=== PATIENT | female | born 1935 | race Caucasian/White ===

== ENCOUNTER → 2017-01-11 | Outpatient (CLI) | payer MEDICARE ==
[~2017-01-11] MED LIST: ACET1TAB84 PO; AMLO-114 PO; ASPI-232 PO; CALC500C70 PO; CHOL1000 PO; ENAL10TA88 PO; FURO40TA3 PO; MULT-845 PO; OXGN; SENNTAB23 PO; WARF5TAB7 PO
--- NOTE | 2017-01-14 12:46 | MAMMOGRAPHY REPORT ---
BILATERAL DIGITAL SCREENING MAMMOGRAM WITH CAD: 01/11/2017 CLINICAL HISTORY: Routine screening. Patient has no complaints. TECHNIQUE: Current study was also evaluated with a Computer Aided Detection (CAD) system. Bilatera l CC and MLO views were obtained. COMPARISON: Comparison is made to exams dated: 01/06/2016 mammogram - [facility], mammogram, and 05/28/2012 mammogram. BREAST COMPOSITION: There are scattered areas of fibroglandular density in both breasts. FINDINGS: No suspicious masses, calcifications, or areas of architectural distortion are noted in e ither breast. There has been no significant interval change compared to prior exams. Bilateral nata gn-appearing calcifications are not significantly changed. IMPRESSION: ACR BI-RADS CATEGORY 2: BENIGN There is no mammographic evidence of malignancy. A 1 year screening mammogram is recommended. The p atient will receive written notification of the results. Approximately 10% of breast cancers are not detected with mammography. A negative mammographic repor t should not delay biopsy if a clinically suggestive mass is present. Fatimah De Oliveira M.D. ah/:01/11/2017 15:40:17 Product Controller: Dariana Coello RT(R)(M), [facility] letter sent: Normal 1/2 BI-RADS Code: ACR BI-RADS Category 2: Benign
== END | disposition home or self-care (01) ==
LOC: C.MAMM 12:11
PROVIDERS: ATTEND Internal Medicine
DX: Z12.31 Encounter for screening mammogram for malignant neoplasm of breast (principal)

== ENCOUNTER → 2017-05-17 | Outpatient (CLI) | payer MEDICARE ==
[2017-05-17 13:39] LABS: BASO % 0.3 %; BASO ABS # 0.02 K/uL (0-0.2); COMPLETE YES; EOS % 1.6 %; HEMATOCRIT 52.6 % (37-47); IG% 0.4 %; MEAN CELL VOLUME 97.2 fL (80-100); MEAN CORPUSCULAR HEMOGLOBIN 33.3 pg (25-34); MEAN CORPUSCULAR HGB CONC 34.2 g/dl (32-36); MEAN PLATELET VOLUME 10.4 fL (7.4-10.4); MONO % 7.9 %; NEUT % 45.8 %; PLATELET COUNT 152 K/uL (130-400); RED BLOOD COUNT 5.41 M/uL (4.2-5.4)
[2017-05-17 14:14] LABS: BLOOD UREA NITROGEN 27 mg/dl (7-18); BUN/CREATININE RATIO 28.2 (10-20); CALCIUM 9.9 mg/dl (8.5-10.1); CARBON DIOXIDE 34 mmol/L (21-32); CHLORIDE 103 mmol/L (98-107); CHOLESTEROL 183 mg/dl (0-200); CREATININE 0.96 mg/dl (0.60-1.20); GLUCOSE 94 mg/dl (70-99); POTASSIUM 4.2 mmol/L (3.5-5.1); SODIUM 143 mmol/L (136-145)
[2017-05-17 14:36] LABS: ALKALINE PHOSPHATASE 83 U/L (45-117); ALT/SGPT 32 U/L (12-78); AST/SGOT 27 U/L (15-37); CHOLESTEROL/HDL RATIO 3.1; HDL CHOLESTEROL 60 mg/dl; LDL CHOLESTEROL CALCULATED 84 mg/dl; TRIGLYCERIDES 193 mg/dl (0-150); VERY LOW DENSITY LIPOPROT CALC 39 mg/dl
== END | disposition home or self-care (01) ==
LOC: C.LABBC 12:04
PROVIDERS: ATTEND Internal Medicine
DX: E55.9 Vitamin D deficiency, unspecified (principal); E78.1 Pure hyperglyceridemia

== ENCOUNTER → 2017-10-11 | Outpatient (CLI) | payer MEDICARE ==
[~2017-10-11] VITALS: Ht 167.6 cm; Wt 107.0 kg
[~2017-10-11] MED LIST changes: -AMLO-114 PO; +AMLO10TA3 PO; +CALCCAP14 PO; +DOCU100C31 PO
[2017-10-11 15:52] VITALS: BP 125/68; PULSE 81; Ht 167.6 cm; Wt 107.0 kg
== END | disposition home or self-care (01) ==
LOC: C.NEUR 15:15
PROVIDERS: ATTEND Internal Medicine Pulmonary Disease
DX: G47.34 Idiopathic sleep related nonobstructive alveolar hypoventilation (principal); D75.1 Secondary polycythemia

== ENCOUNTER → 2017-10-28 | Outpatient (CLI) | payer MEDICARE ==
[~2017-10-28] MED LIST changes: +AMLO-114 PO; -AMLO10TA3 PO; -CALCCAP14 PO; -DOCU100C31 PO
--- NOTE | 2017-10-29 07:37 | PAP/PSG TECHNICIAN REPORT ---
[facility] Mold Maker Apprentice Polysomnogram Report Study name: None Report date: 10/29/2017 Study date: 10/28/2017 Referring Physician: DR. Emily MARKHAM Name: MARIA ESTHER MELENDEZ Interpreting Physician: Pedro Luis Oconnell M.D. Date of : 1935 Mold Maker Apprentice: Layla Cruz, PSGT. Sex: Female Age: 82 StudyType: PSG Weight: 236 lbs Height: 82 years, Height 5' 6" Neck Circum:15 inches BMI: 38.09 Medications: Acetaminophen Er 650 mg, Amlodipine 10 mg, Aspirin 81 mg, Calcium+D, Centrum Silver, Enalapril Maleate 10 mg, Furosemide 40 mg, Jantoven 1 mg, Jantoven 5 mg, Oxygen 2 lpm, Stool Softner. Patient History 82-year-old female here for a Bi-pap titration with a full-face mask, and oxygen as needed. Patient has tired C-pap in the past and was not tolerate to it. or the mask, nasal pillows were tired and they also did not work for her, so patient discontinued treatment all together. Patient does have copd, polycythemia requiring phlebotomy, severe ninfa and hypoxemia. Patient uses 2 lpm of oxygen at bedtime.ESS= 7, Neck = 15 inches. Parameters Monitored NPSG: E1-M2, E2-M1, Fp1-M2, Fp2-M1, F3-M2, F4-M2, F4-M1, C3-M2, C4-M2, C4-M1, O1-M2, O2-M2, O2-M1, T3-M2, T4-M1, P3-M2, P4-M1, CHIN1, CHIN2, HR, EKG, Legs, PFLOW, SNOR, FLOW, CFLOW, Tidal Volume, THOR, ABDO, SpO2, PLTH, CPRESS, ETCO2 Wave, ETCO2, pH Sleep Architecture Sleep Stages Time at Lights Off 10:08:30 PM STAGES Time (min.) TST (%) Time at Lights On 4:41:30 AM Wake 85.0 -- Total Recording Time (TRT) 394.50 min. N1 16.5 5 Total Sleep Period (TSP) 369.0 min. N2 255.0 83 Total Sleep Time (TST) 308.0min. N3 0.0 0 Awake Time 86.5 min. REM 36.5 12 Wake after Sleep Onset 69.0 min. Sleep Efficiency (SE) 78 % Sleep Onset Latency (MARLYS) 16.0 min. Number of Stage 1 Shifts None Awakenings 14 Stage Changes 49 Number of REM periods 3 REM 36.5 12 REM Latency 95.0 min. NREM 271.5 88 Body Position Analysis Supine Right Left Side Prone Vertical Total Sleep Time (min.) 103.3 110.7 118.3 229.00 0.0 0.0 Total Sleep Time (%) 26% 36% 38% 74 0% N/A% Total Sleep Time REM (min.) 0.0 36.5 0.0 None 0.0 0.0 Total Sleep Time NREM (min.) 79.0 74.2 118.3 None 0.0 0.0 Intermittent Wake (min.) 24.3 21.6 39.0 None 0.0 0.0 Total Sleep Period (%) 24% None None None None None Arousals Myoclonus (PLM) * Events Count Index Events Count Index Spontaneous 35 7 Events Awake (PLMW) 0 0.0 Respiratory 19 3.7 Events Asleep w/ Arousal (PLMA) 32 6.2 PLM 32 6 Events Asleep w/o Arousal (PLMS) 359 69.9 Snoring 2 0 Total Asleep 391 76.2 Total 88 17 Total 391 60 Respiratory Analysis * CA OA MA CH H RERA Total Count 4 4 0 0 45 0 53 Index 0.8 0.8 0.0 0 8.8 0 10.3 Mean Duration 20.0 23.1 0.0 0.00 17.1 0.0 17.8 Longest Duration 26.0 37.3 0.0 0.00 0.0 0.0 37.3 Respiratory Event Summary Total Supine ~Supine Right Left Prone REM NREM Apneas Count 8 8 0 0 0 N/A 0 8 Index 1.6 6 0 0.0 0.0 N/A 0 2 Hypopneas (4% Desat) Count 45 39 6 3 3 N/A 0 45 Index 8.8 29.6 2 1.6 1.5 N/A 0.0 9.9 Apneas & All Hypopneas Count 53 47 6 3 3 N/A 0 53 Index 10.3 36 2 2 2 N/A 0.0 11.7 Respiratory Events (Manager Paid+All Hyp+RERA) Count 53 47 6 3 3 N/A 0 53 Index 10.3 36 2 1.6 1.5 N/A 0.0 11.7 Respiratory Related Arousal Count 19 47 0 0 0 N/A 0 19 Index 3.7 14 0 0 0 N/A 0 4 Snoring Analysis Supine Right Left Prone REM NREM Total Snore duration 2.7 min Snores count 48 48 26 N/A 1 121 122 Snore mean duration 1.3 Sec Snores index 36 26 13 N/A 1.6 26.7 23.8 TST with snoring (%) 0.9% Desaturation Event Summary: Minimum %SpO2 Event Count Mean/Min/Max Duration(sec.) Desaturation Index % Time In Bed > 90 75 27.8 / 12.8 / 51.0 17.9 66.2 86 - 90 23 24.0 / 8.0 / 32.0 12.4 29.2 81 - 85 0 N/A 0.0 3.8 76 - 80 0 N/A 0.0 0.7 71 - 75 0 N/A 0.0 0.0 66 - 70 0 N/A 0.0 0.0 61 - 65 0 N/A 0.0 0.0 56 - 60 0 N/A 0.0 0.0 51 - 55 0 N/A 0.0 0.0 < 50 0 N/A 0.0 0.0 Total REM NREM Awake <50% 0.0 min. 0.0 min. 0.0 min. 0.0 min. 51 - 60% 0.0 min. 0.0 min. 0.0 min. 0.0 min. 61 - 70% 0.0 min. 0.0 min. 0.0 min. 0.0 min. 71 - 80% 2.9 min. 0.0 min. 2.9 min. 0.0 min. 81 - 90% 125.5 min. 16.2 min. 92.9 min. 16.5 min. 91 - 100% 252.1 min. 20.2 min. 175.5 min. 56.3 min. Average 91 91 91 92 Minimum SpO2 74 85 74 82 Desaturation Event Index 12.8 1.6 18.3 0.0 # Desat. Events below 89% 70 1 69 0 Time(%) with Saturation below 89% 16.3 2.0 12.8 1.5 Time(min.) with Saturation below 89% 62.1 7.6 48.9 5.7 Time (mins) REM (mins) NREM (mins) % of TST SpO2 Below 90% 79 1 N78 26.4 SpO2 Below 88% 31 0 0 14 Heart Rate Analysis Min (bpm) Max (bpm) Average (bpm) Awake 30 129 62 NREM 38 85 54 REM 43 66 53 Overall 38 85 54 Supplemental O2 Values Minimum O2 level: None Value Start Time End Time Mold Maker Apprentice Comments Bi-Level Study: Ms. Melendez slept in the right, left, and supine positions. Cardiac arrhythmia and PLM's noted. No bruxism noted. PAP initiated at an IPAP of +4 CMH2O and an EPAP of +8 CMH2O up-titrated to an optimal level of: IPAP +13 CMH2O, EPAP + 8 CMH20 with 1 lpm 02. At 2:52 am Ms. Melendez was under 89% for 167.6 minutes and her AHI was under 5. A medium F&P Simplus, was used during titration Ms. Melendez awoke to use the restroom two times during the night. Ms. Melendez stated, I could not get comfortable. The final report will be interpreted and signed by a sleep physician. The completed physician report will then be placed in the patient medical record. Patient did very well with the bi-pap pressures and the full-face mask.Ms. Melendez did have a lot of leg movement and pain in her legs. Ms. Melendez woke to use the restroom at 4:41 am, she said she could not lay back down, she just was to uncomfortable, test was ended at that time. Patient should do well. Ms. Melendez asked that we use oxygen care for her DME. Therapy Event: Therapy (cm H20) 0 8/4 9/5 10/5 11/6 12/7 13/8 Total Time at Pressure (min.) 0.8 18.4 31.4 7.5 29.9 21.5 283.6 TST at Pressure (min.) 0.0 3.2 30.4 7.5 29.9 13.0 224.1 # Periods 1 1 1 1 1 1 1 Sleep Onset (min.) N/A 15.2 0.0 0.0 0.0 0.0 0.0 REM Onset (min.) N/A N/A N/A N/A N/A N/A 1.6 Sleep Efficiency % 0 17 96 100 100 60 79 Wakefulness (%) 100.0 82.7 3.2 0.0 0.0 39.6 21.0 Wakefulness (min.) 0.8 15.2 1.0 0.0 0.0 8.5 59.5 NREM 1 (%) 0.0 8.2 3.2 0.0 0.0 4.7 4.6 NREM 1 (min.) 0.0 1.5 1.0 0.0 0.0 1.0 13.0 NREM 2 (%) 0.0 9.1 93.6 100.0 100.0 55.8 61.6 NREM 2 (min.) 0.0 1.7 29.4 7.5 29.9 12.0 174.6 NREM 3 (%) 0.0 0.0 0.0 0.0 0.0 0.0 0.0 NREM 3 (min.) 0.0 0.0 0.0 0.0 0.0 0.0 0.0 REM (%) 0.0 0.0 0.0 0.0 0.0 0.0 12.9 REM (min.) 0.0 0.0 0.0 0.0 0.0 0.0 36.5 # Arousals N/A 2 9 5 26 9 37 Arousal Index N/A 37.9 17.8 40.1 52.2 41.6 9.9 # Snore N/A 2 6 2 32 8 72 Snore Index N/A 37.9 11.9 16.1 64.3 37.0 19.3 AHI N/A 56.8 19.8 40.1 44.2 32.4 1.6 AHI Supine N/A 56.8 19.8 40.1 44.2 51.7 N/A AHI Non-Supine N/A N/A N/A N/A N/A 0.0 1.6 NREM AHI N/A 56.8 19.8 40.1 44.2 32.4 1.9 REM AHI N/A N/A N/A N/A N/A N/A 0.0 RDI N/A 56.8 19.8 40.1 44.2 32.4 1.6 # Obstructive N/A 0 0 1 2 1 0 # Central Ap N/A 0 0 0 1 3 0 # Mixed N/A 0 0 0 0 0 0 # Hypopneas N/A 3 10 4 19 3 6 RERAS N/A 0 0 0 0 0 0 Total Respiratory Events N/A 3 10 5 22 7 6 Time Below SpO2 89.00% (min.) 0.0 1.7 20.3 5.3 14.0 5.2 9.9 Mean NREM SpO2 (%) N/A 88 88 87 89 89 92 Mean REM SpO2 (%) N/A N/A N/A N/A N/A N/A 91 Mean Sleep SpO2 (%) N/A 88 88 87 89 89 92 Min NREM SpO2 (%) N/A 81 76 77 74 78 83 Min REM SpO2 (%) N/A N/A N/A N/A N/A N/A 85 Position Supine (min.) 0.0 3.2 30.4 7.5 29.9 8.1 0.0 Position Non-supine (min.) 0.0 0.0 0.0 0.0 0.0 4.9 224.1 LM Index Sleep N/A 37.9 39.5 32.1 72.3 87.8 83.0 LM Index NREM N/A 37.9 39.5 32.1 72.3 87.8 95.3 LM Index REM N/A N/A N/A N/A N/A N/A 19.7 Mean Heart Rate (bpm) N/A 54 54 55 55 55 54 Min Heart Rate (bpm) N/A 47 43 46 42 45 38
--- NOTE | 2017-10-31 04:43 | POLYSOMNOGRAPH REPORT ---
CLINICAL DATA: An 82-year-old female with BMI of 38.1, referred by myself for a BiPAP titration study. She has tried CPAP in the past but did not tolerate it. She has COPD, polycythemia, and hypoxemia, along with severe sleep apnea. She does use 2 liters of oxygen at bedtime. SLEEP ARCHITECTURE: Total sleep period was 369 minutes. Total sleep time was 308 minutes divided between 271.5 minutes of non-REM sleep and 36.5 minutes of REM sleep. Sleep onset latency was 16 minutes. REM latency was 95 minutes. Sleep efficiency was 78%. Wake after sleep onset was 69 minutes. Sleep consisted of stage N1 5%, stage N2 83%, and REM 12%. AROUSAL DATA: Eighty eight arousals were recorded for an index of 17 per hour. PERIODIC LIMB MOVEMENT DATA: Three hundred and ninety one limb movements during sleep were noted for an index of 76.2 per hour with arousal index of 6.2 per hour. RESPIRATORY DATA: The AHI was 10.3. There were 4 central and 4 obstructive apneic episodes. The longest apneic episode was 37.3 seconds. There were 45 hypopneic episodes with a mean duration 17.1 seconds. OXIMETRY DATA: Nocturnal hypoxemia was seen. Oxygen anabella was 74%. Mean saturation was 91%, time below 89% was 62 minutes. Time below 88% was 31 minutes. ECHOCARDIOGRAM: Heart rates ranged from 38-85 beats per minute. DOOR TO DOOR SALESPERSON'S COMMENTS AND TREATMENT SUMMARY: The patient slept in the right, left, and supine position. The patient used a medium F&P Simplus mask. She was started on BiPAP 8/4 and was titrated up to 13/8, initially without oxygen. However, her saturations were under 89% for 167 minutes with an AHI of 5. Oxygen at 1 liter per minute was added. She tolerated BiPAP well. However, she had a leg movements and pain in her legs and awoke at 4:41 a.m. saying she could not go back to sleep, so the study was ended at that point. At her final BIPAP pressure of 13/8 and O2 1 LPM, the patient slept for 224 minutes with an AHI of 1.6. IMPRESSION: Severe sleep apnea/hypopnea with nocturnal hypoxemia corrected with BiPAP 13/8, oxygen at 1 liter per minute using a medium F&P Simplus mask. RECOMMENDATIONS: The patient will be started on the above noted treatment regimen and seen back in followup within 90 days to document efficacy and compliance. MTDD
== END | disposition home or self-care (01) ==
LOC: C.NEUR 20:00
PROVIDERS: ATTEND Internal Medicine Pulmonary Disease
DX: D75.1 Secondary polycythemia (principal); G47.34 Idiopathic sleep related nonobstructive alveolar hypoventilation; G47.30 Sleep apnea, unspecified

== ENCOUNTER → 2018-02-17 | Outpatient (CLI) | payer MEDICARE ==
[~2018-02-17] MED LIST changes: -CALC500C70 PO; +CALCCAP14 PO; +DOCU100C31 PO; -SENNTAB23 PO
--- NOTE | 2018-02-18 15:04 | MAMMOGRAPHY REPORT ---
BILATERAL DIGITAL SCREENING MAMMOGRAM TOMOSYNTHESIS WITH CAD: 02/17/2018 CLINICAL HISTORY: Routine screening. Patient has no complaints. TECHNIQUE: Breast tomosynthesis in addition to standard 2D mammography was performed. Additional 2D views were performed in the anterior breasts, to ensure inclusion of all possible breast tissue. Cu rrent study was also evaluated with a Computer Aided Detection (CAD) system. COMPARISON: Comparison is made to exams dated: 01/11/2017 mammogram, 01/06/2016 mammogram - [facility], 05/29/2013 mammogram, and 05/28/2012 mammogram. BREAST COMPOSITION: There are scattered areas of fibroglandular density in both breasts. FINDINGS: There are diffuse benign-appearing rodlike and rim calcifications in the breasts. A stable grouping of punctate micro calcifications in the anterior left breast appears similar dating back to at least 2007. A stable metallic biopsy marker clip in the right breast. No new suspicious mass, a rchitectural distortion or cluster of microcalcifications is seen. IMPRESSION: ACR BI-RADS CATEGORY 1: NEGATIVE There is no mammographic evidence of malignancy. A 1 year screening mammogram is recommended. The pa tient will receive written notification of the results. Approximately 10% of breast cancers are not detected with mammography. A negative mammographic report should not delay biopsy if a clinically suggestive mass is present. Lindsey Rodriguez M.D. ay/:02/17/2018 16:07:01 Estimate Clerk: Gina BALTAZAR(Jude)(Enedina)(BD), [facility] letter sent: Normal 1/2 BI-RADS Code: ACR BI-RADS Category 1: Negative
== END | disposition home or self-care (01) ==
LOC: C.MAMM 13:25
PROVIDERS: ATTEND Internal Medicine
DX: Z12.31 Encounter for screening mammogram for malignant neoplasm of breast (principal)

== ENCOUNTER → 2018-05-08 | Outpatient (CLI) | payer BC ==
[~2018-05-08] MED LIST changes: -AMLO-114 PO; +AMLO10TA3 PO
[2018-05-08 13:28] LABS: BASO % 0.3 %; BASO ABS # 0.02 K/uL (0-0.2); EOS ABS # 0.08 K/uL (0-0.5); HEMATOCRIT 50.2 % (37-47); HEMOGLOBIN 17.1 g/dL (12.0-16.0); IG# 0.02 K/uL (0.00-0.02); LYMPH ABS # 2.74 K/uL (1.2-3.4); MEAN CELL VOLUME 95.6 fL (80-100); MEAN CORPUSCULAR HEMOGLOBIN 32.6 pg (25-34); MEAN CORPUSCULAR HGB CONC 34.1 g/dl (32-36); MEAN PLATELET VOLUME 10.2 fL (7.4-10.4); MONO % 8.8 %; MONO ABS # 0.69 K/uL (0.11-0.59); NEUT % 54.6 %; NEUT ABS # 4.27 K/uL (1.4-6.5); PLATELET COUNT 150 K/uL (130-400); RED CELL DISTRIBUTION WIDTH CV 14.1 % (11.5-14.5); RED CELL DISTRIBUTION WIDTH SD 49.3 fL (36.4-46.3); WHITE BLOOD COUNT 7.82 K/uL (4.8-10.8)
[2018-05-08 13:51] LABS: ALKALINE PHOSPHATASE 79 U/L (45-117); ALT/SGPT 25 U/L (12-78); AST/SGOT 32 U/L (15-37); BLOOD UREA NITROGEN 26 mg/dl (7-18); CALCIUM 9.4 mg/dl (8.5-10.1); CARBON DIOXIDE 29 mmol/L (21-32); CHOLESTEROL 160 mg/dl (0-200); CREATININE 0.99 mg/dl (0.60-1.20); GLUCOSE 95 mg/dl (70-99); LDL CHOLESTEROL CALCULATED 72 mg/dl; POTASSIUM 3.9 mmol/L (3.5-5.1); SODIUM 139 mmol/L (136-145); TOTAL PROTEIN 7.6 gm/dl (6.4-8.2)
== END | disposition home or self-care (01) ==
LOC: C.LABBC 12:06
PROVIDERS: ATTEND Internal Medicine
DX: I48.91 Unspecified atrial fibrillation (principal); I10 Essential (primary) hypertension; D75.1 Secondary polycythemia; M81.0 Age-related osteoporosis without current pathological fracture; G47.34 Idiopathic sleep related nonobstructive alveolar hypoventilation; M17.0 Bilateral primary osteoarthritis of knee

== ENCOUNTER 2023-01-08 18:14 | Inpatient (IN) ==
--- NOTE | 2023-01-08 18:23 | ED Triage Note ---
Date of Service January 08, 2023 History of Present Illness This patient was briefly evaluated while in triage. An abbreviated physical exam was performed. This patient is a 87-year-old Female who presents to the ED via EMS for evaluation of a blister to her left great toe. The patient has had this before in the past that required further management with the [facility]. Patient denies any pain. Patient does have a history of atrial fibrillation. She denies history of CHF. She currently denies any chest pain or shortness of breath. Physical Exam CONSTITUTIONAL: Healthy and well nourished. HEENT: Normocephalic, atraumatic. NECK: Full active range of motion without discomfort. LYMPHATICS: No cervical chain adenopathy. RESPIRATORY: Clear to auscultation bilaterally with no wheezing, crackles, rhonchi or stridor. CARDIOVASCULAR: Regular rate and rhythm with no murmurs, rubs or gallops. MUSCULOSKELETAL: Examination shows a tense blister to the dorsal lateral aspect of the great toe. Patient has notable 2+ pretibial pitting edema with erythema of bilateral lower extremities. Pedal pulses are intact INTEGUMENTARY: No rash or other significant dermatologic conditions noted. HEMATOLOGIC: No ecchymosis or petechiae. PSYCHIATRIC: Positive affect. Initial orders for labs and / or imaging were placed and patient was placed in the waiting area until a bed is available. Please see further documentation for the full ED course.
[2023-01-08 19:15] LABS: Basophils # (auto) 0.04 K/uL (0-0.2); Basophils % (auto) 0.6 %; Eosinophils # (auto) 0.06 K/uL (0-0.50); Hematocrit (blood only) 45.8 % (37.0-47.0); Hemoglobin 15.2 g/dl (12.0-16.0); Immature Granulocytes # (auto) 0.01 K/uL (0.01-0.20); Immature Granulocytes % (auto) 0.2 %; Lymphocytes # (auto) 2.63 K/uL (1.2-3.4); Lymphocytes % (auto) 41.7 %; Mean Corpuscular Hemoglobin 31.9 pg (25.0-34.0); Mean Corpuscular Hgb Conc 33.2 g/dL (32.0-36.0); Mean Platelet Volume 10.4 fL (9.4-12.4); Monocytes # (auto) 0.58 K/uL (0.11-0.59); Monocytes % (auto) 9.2 %; Neutrophils # (auto) 2.99 K/uL (1.40-6.50); Neutrophils % (auto) 47.3 %; Platelet Count 191 K/uL (130-400); RDW Coefficient of Variation 13.8 % (11.5-14.5); RDW Standard Deviation 49.1 fL (36.4-46.3); Red Blood Count 4.77 M/uL (4.20-5.40); White Blood Count 6.31 K/ul (4.8-10.8)
[2023-01-08 19:33] LABS: Alanine Aminotransferase 23 U/L (7-52); BUN Creatinine Ratio 28.3 (10-20); Blood Urea Nitrogen 26 mg/dl (6-23); Calcium 9.3 mg/dl (8.6-10.3); Carbon Dioxide 32 mmol/L (21-32); Chloride 101 mmol/L (98-107); Est GFR (African American) 65.8 ml/min; Est GFR (Non-African American) 56.8 ml/min; Glucose 95 mg/dl (70-99(Fasting)); Lipase 17 U/L (11-82); Total Protein 7.4 gm/dl (6.0-8.3)
[2023-01-08 19:38] LABS: Troponin I High Sensitivity 11.7 pg/ml (0-14)
[2023-01-08] MEDS ORDERED: cefTRIAXone SODIUM 2,000 MG/70 ML BAG IV STA (20:43)
[2023-01-08] MEDS ORDERED: FUROSEMIDE 40 MG/4 ML VIAL IV ONE (20:44)
[2023-01-08 21:05] LABS: Albumin Level 4.1 gm/dl (3.4-5.0); Potassium 3.8 mmol/L (3.5-5.1)
[2023-01-08 21:19] LABS: INR 2.5 (0.9-1.1); Prothrombin Time 25.6 Seconds (9.0-12.0)
--- NOTE | 2023-01-08 22:36 | XRay Report ---
SINGLE VIEW CHEST CLINICAL HISTORY: Atypical chest pain FINDINGS: An AP, portable, upright chest radiograph is compared to study dated 12/23/2022. The heart i s enlarged noting atherosclerotic calcification of the thoracic aorta. The pulmonary vasculature is n oncongested. Chronic interstitial thickening similar to previous. There is bibasilar scarring/atelect asis. The lungs and pleural spaces are otherwise clear. No pneumothorax is seen. The skeletal structu res are osteopenic. The bony thorax is grossly intact. IMPRESSION: Cardiomegaly with no active disease in the chest. ACT 112: Negative or not required by law. Electronically signed by: Jose Welsh M.D. 01/08/2023 10:35 PM
--- NOTE | 2023-01-08 23:04 | History & Physical Report ---
Date of Service January 08, 2023 Assessment & Plan (1) Edema: Plan: 87-year-old female with history of atrial fibrillation on Coumadin anticoagulation, hypertension, CKD and severe KAYLIN on nocturnal CPAP with oxygen presenting with progressive bilateral lower extremity edema and presumed weight gain. Mild elevation of BNP = 153. Chest x-ray with cardiomegaly but no obvious pulmonary edema Do not suspect active infection - no additional antibiotics at this time Check TSH and urinalysis for proteinuria -Check 2D echo -Diuresis with Lasix 40mg IV BID -Monitor I/Os, daily weights -Monitor BMP, renal function and electrolytes (2) Hypertension: Plan: Chronic hypertension, well controlled at present -Continue Amlodipine 10mg po daily -Continue Enalapril 10mg po BID -Continue to monitor (3) Severe sleep apnea: Plan: Patient with severe KAYLIN and nocturnal hypoxemia. She is on home BiPAP therapy wtih supplemental O2. Her settings per last Sleep note 08/07/22 BiPAP 13/8, BiFlex 3 with 1L/min of O2 -Continue BiPAP qHS with O2 (4) CKD (chronic kidney disease), stage III: Plan: BUN and Cr near baseline -Continue to monitor -Avoid nephrotoxic agents where able -Renal dosing as needed (5) Permanent atrial fibrillation: Plan: Rate controlled with episodic bradycardia. Currently not on any rate controlling agents. Anticoagulated with Coumadin, INR=2.5 -Continue Coumadin -Monitor INR Patient takes Benadryl BID for episodes of urticaria. -Will continue F/E/N - Diuresis as above with IV Lasix, monitor electrolytes and replete as needed, Regular diet as tolerated Ppx - Continue Coumadin anticoagulation Code - DNR/DNI per discussion with patient Dispo - Admit to medical with telemetry for continued workup of edema and IV diuretics History of Present Illness Chief Complaint: Bilateral lower extremity edema, blister on left great toe Primary Care Provider: Ian Galindo MD Juana Quiñones is an 87-year-old female with history of atrial fibrillation, hypertension, CKD and KAYLIN presenting with worsening edema and fluid filled blister on left great toe. Patient reports that she has had progressive bilateral lower extremity edema for the last week. She reports that the skin on her legs feels tight and that her legs feel heavy causing difficulty with ambulation at times. She woke this morning and had a fluid-filled blister on her left great toe. She does not weigh herself regularly but reports she feels that she has gained weight. Her close do not fit properly and she is unable to get her shoes on her feet. She was using compression stockings in the past but has been unable to get them on secondary to the swelling in her legs. She denies shortness of breath or orthopnea. Reports that she is urinating per usual without difficulty. Patient is uncertain of her dry weight but thinks that she should weigh between 220 and 225 pounds. Patient recently completed a course of nitrofurantoin for UTI.She reports persistent urinary incontinence. No additional complaints. Patient denies fever, chills, chest pain, cough, shortness of breath. Denies abdominal pain, nausea, vomiting, diarrhea. Denies dysuria. In the ER she is afebrile, hemodynamically stable. Adequate oxygenation on room air with no respiratory distress ER course: Lasix 40mg IV Ceftriaxone 2gm IV Allergies Allergy/AdvReac Type Severity Reaction Status Date / Time adhesive Allergy Intermediate RASH Verified 01/08/23 21:36 Iodinated Contrast Media Allergy Intermediate IMMEDIATE Verified 01/08/23 21:36 COLD SYMPTOMS codeine AdvReac Intermediate Hyperactive Verified 01/08/23 21:36 and agitated meperidine AdvReac Intermediate VOMITTING Verified 01/08/23 21:36 Home Medications Medication Instructions Recorded Confirmed Type cholecalciferol (vitamin D3) 25 1,000 units PO QAM 07/28/18 01/08/23 History mcg (1,000 unit) capsule docusate sodium 100 mg capsule 100 mg PO QAM 07/28/18 01/08/23 History jgkhghgg-fyb-nbuzo acid 0.4 1 tab PO QAM 07/28/18 01/08/23 History mg-lycopene 300 mcg-lutein 250 mcg tablet (Centrum Silver) acetaminophen 650 mg 650 mg PO Q12H 05/12/19 01/08/23 History tablet,extended release (Tylenol Arthritis Pain) warfarin 5 mg tablet (Jantoven) See Rx Instructions PO UD 09/19/22 01/08/23 History enalapril maleate 10 mg tablet 10 mg PO BID #180 tabs 09/24/22 01/08/23 Rx warfarin 1 mg tablet See Rx Instructions PO UD #150 tabs 11/05/22 01/08/23 Rx amlodipine 10 mg tablet (Norvasc) 10 mg PO QAM #90 tabs 12/03/22 01/08/23 Rx calcium carbonate 600 mg calcium 600 mg PO QAM 12/26/22 01/08/23 History (1,500 mg) tablet furosemide 40 mg tablet (Lasix) 40 mg PO DAILY 01/08/23 01/08/23 History Past Med/Surg History Medical History Atrial fibrillation on warfarin. 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 Cystocele History of colon polyps HTN (hypertension) Hx of endometriosis Hx of migraines Lymphedema Nocturnal hypoxemia On home O2 1 LPM qHS Sleep apnea CPAP Surgical History H/O oral surgery H/O vascular surgery RT LEG (VEIN ABLATION) H/O: hysterectomy History of appendectomy History of cataract surgery RT/LEFT History of colonoscopy History of dilatation and curettage S/P cholecystectomy Family History Mother Cervical cancer Diabetes Hypertension Gallbladder disease Sister Colon cancer Diabetes Kidney disease Gallbladder disease Father Diabetes Lung disease Brother Colon cancer Alcohol abuse Lung disease Uncle Myocardial infarction Other Family history non-contributory Family history of colon cancer No family history of adverse response to anesthesia Social History Smoking Status: Never smoker Second Hand Exposure: No; Hx Alcohol Use: No Hx Substance Use: No Preferred Language: Palauan Communication Ability: Effective Visual Impairment: Limited Hearing Ability: Normal [place]erry Hand Required: No Beliefs That Will Affect Care: None marital status: / Current Living Situation: Family Current Living Situation Comment: lives with daughter and CHANDA current occupational status: retired How many Children do You have: 1 Other Information That Helps Us Care for You: No Feels Safe at Home: Yes Safety Concerns: Feels Safe At This Time Childhood Exposure to Second-Hand Smoke: Yes caffeine: No Dental Care, Regularly: No Physical Activity Frequency: Does not Exercise Seatbelt Use: always Sunscreen Use: No Assistive Devices: CPAP, Glasses and Walker Assistive Devices Comment: reading glasses Review of Systems Review of Systems: All systems reviewed & are unremarkable except as noted in HPI & below Physical Exam Physical Exam: General: patient resting comfortably, NAD, non-toxic in appearance, AA&O x 4 Skin: warm, dry, intact, chronic venous stasis changes with hyperpigmentation on bilateral LE, no active cellulitis suspected, small fluid filled blister on left great toe HEENT: NC/AT, PERRL, EOMI, anicteric sclera, conjunctiva without injection, external ear normal to inspection and nontender, nares patent, moist mucus membranes, dentition intact, no oropharyngeal lesions, neck supple, trachea midline, no LAD, no thyromegaly, no JVD Heart: +S1/S2, irregularly irregular, no m/r/g, bradycardia Lungs: equal air entry bilaterally, no rales/rhonchi/wheezes Abd: +BS, soft, NT/ND, no masses/organomegaly/ascites Ext: warm, 2+ pulses in UE/LE bilaterally, no clubbing/cyanosis, 3+ pitting edema to the thighs bilaterally Neuro: nonfocal, patient AA&O x 4, speech intact, no facial droop, moving all extremities on command with equal strength 5/5 Results & Data Results & Data Vital Signs (Past 12 Hours) Vital Signs Temp Pulse Resp BP BP Pulse Ox O2 Del Method 01/08/23 21:42 95 Room Air 01/08/23 21:42 113/63 95 01/08/23 18:19 36.4 C L 73 20 134/69 97 Room Air Laboratory Results Laboratory Results WBC 6.31 K/ul (4.8-10.8) 01/08/23 18:35 RBC 4.77 M/uL (4.20-5.40) 01/08/23 18:35 Hgb 15.2 g/dl (12.0-16.0) 01/08/23 18:35 Hct 45.8 % (37.0-47.0) 01/08/23 18:35 MCV 96.0 fL (80.0-100.0) 01/08/23 18:35 MCH 31.9 pg (25.0-34.0) 01/08/23 18:35 MCHC 33.2 g/dL (32.0-36.0) 01/08/23 18:35 RDW Std Deviation 49.1 fL (36.4-46.3) H 01/08/23 18:35 RDW Coeff of Lizabeth 13.8 % (11.5-14.5) 01/08/23 18:35 Plt Count 191 K/uL (130-400) 01/08/23 18:35 MPV 10.4 fL (9.4-12.4) 01/08/23 18:35 Immature Gran % (Auto) 0.2 % 01/08/23 18:35 Neut % (Auto) 47.3 % 01/08/23 18:35 Lymph % (Auto) 41.7 % 01/08/23 18:35 Slope % (Auto) 9.2 % 01/08/23 18:35 Eos % (Auto) 1.0 % 01/08/23 18:35 Baso % (Auto) 0.6 % 01/08/23 18:35 Neut # (Auto) 2.99 K/uL (1.40-6.50) 01/08/23 18:35 Lymph # (Auto) 2.63 K/uL (1.2-3.4) 01/08/23 18:35 Slope # (Auto) 0.58 K/uL (0.11-0.59) 01/08/23 18:35 Eos # (Auto) 0.06 K/uL (0-0.50) 01/08/23 18:35 Baso # (Auto) 0.04 K/uL (0-0.2) 01/08/23 18:35 Immature Gran # (Auto) 0.01 K/uL (0.01-0.20) 01/08/23 18:35 PT 25.6 Seconds (9.0-12.0) H 01/08/23 20:17 INR 2.5 (0.9-1.1) H 01/08/23 20:17 Sodium 138 mmol/L (136-145) 01/08/23 20:17 Potassium 3.8 mmol/L (3.5-5.1) 01/08/23 20:17 Chloride 101 mmol/L (98-107) 01/08/23 18:35 Carbon Dioxide 32 mmol/L (21-32) 01/08/23 18:35 Anion Gap TNP 01/08/23 18:35 BUN 26 mg/dl (6-23) H 01/08/23 18:35 Creatinine 0.92 mg/dl (0.6-1.2) 01/08/23 18:35 Est Cr Clr Drug Dosing Not Reportable 01/08/23 18:35 Est GFR ( Amer) 65.8 ml/min 01/08/23 18:35 Est GFR (Non-Af Amer) 56.8 ml/min 01/08/23 18:35 BUN/Creatinine Ratio 28.3 (10-20) H 01/08/23 18:35 Glucose 95 mg/dl (70-99(Fasting)) 01/08/23 18:35 Calcium 9.3 mg/dl (8.6-10.3) 01/08/23 18:35 Total Bilirubin 1.0 mg/dl (0.2-1.0) 01/08/23 18:35 AST 30 U/L (13-39) 01/08/23 20:17 ALT 23 U/L (7-52) 01/08/23 18:35 Alkaline Phosphatase 96 U/L (34-104) 01/08/23 20:17 Troponin I High Sens 11.7 pg/ml (0-14) 01/08/23 18:35 B-Natriuretic Peptide 153 pg/ml (0-100) H 01/08/23 18:35 Total Protein 7.4 gm/dl (6.0-8.3) 01/08/23 18:35 Albumin 4.1 gm/dl (3.4-5.0) 01/08/23 20:17 Globulin TNP 01/08/23 18:35 Albumin/Globulin Ratio TNP 01/08/23 18:35 Lipase 17 U/L (11-82) 01/08/23 18:35 SARS-CoV-2, RNA, NAAT NEGATIVE (NEGATIVE) 01/08/23 21:14 Impressions Chest X-Ray 01/08/23 18:23 SINGLE VIEW CHEST CLINICAL HISTORY: Atypical chest pain FINDINGS: An AP, portable, upright chest radiograph is compared to study dated 12/23/2022. The heart is enlarged noting atherosclerotic calcification of the thoracic aorta. The pulmonary vasculature is noncongested. Chronic interstitial thickening similar to previous. There is bibasilar scarring/atelectasis. The lungs and pleural spaces are otherwise clear. No pneumothorax is seen. The skeletal structures are osteopenic. The bony thorax is grossly intact. IMPRESSION: Cardiomegaly with no active disease in the chest. ACT 112: Negative or not required by law. Electronically signed by: Jose Welsh M.D. 01/08/2023 10:35 PM ECG Additional Comments: EKGper my evaluationstudy reveals atrial fibrillation with slow ventricular response, rate = 55, QRS = 122, QTc = 407 Left axis deviation with right bundle branch block. PG Care Time/CCT Total # of Minutes Spent Total Time Spent with Patient: Total time spent is greater than 50% in coordination of care (as documented) at patient's floor/unit and/or counseling patient: Coding Level of Care Code 80000 INT INP/OBS CARE 3/75MIN Diagnoses Edema R60.9 Hypertension I10 Hypertension type: essential hypertension Severe sleep apnea G47.30 CKD (chronic kidney disease), stage III N18.30 Permanent atrial fibrillation I48.21 (2) Hypertension Hypertension type: essential hypertension Qualified Code(s): I10 - Essential (primary) hypertension
[2023-01-09] MEDS ORDERED: ACETAMINOPHEN 325 MG TAB PO PRN (00:15)
[2023-01-09] MEDS ORDERED: POLYETHYLENE (MIRALAX) 17 GM PACK PO PRN (00:15)
[2023-01-09] MEDS ORDERED: ONDANSETRON INJ 2 MG/ML 2 ML VIAL IV PRN (00:15)
[2023-01-09] MEDS ORDERED: DOCUSATE SODIUM 100 MG CAP PO PRN (00:15)
[2023-01-09] MEDS ORDERED: WARFARIN SOD 6 MG TAB PO ONE (00:44)
[2023-01-09 05:03] LABS: Hematocrit (blood only) 42.2 % (37.0-47.0); Hemoglobin 14.1 g/dl (12.0-16.0); Mean Corpuscular Hgb Conc 33.4 g/dL (32.0-36.0); Mean Corpuscular Volume 95.7 fL (80.0-100.0); Mean Platelet Volume 9.4 fL (9.4-12.4); Platelet Count 175 K/uL (130-400); RDW Coefficient of Variation 13.6 % (11.5-14.5); Red Blood Count 4.41 M/uL (4.20-5.40); White Blood Count 5.14 K/ul (4.8-10.8)
[2023-01-09 05:16] LABS: BUN Creatinine Ratio 25.3 (10-20); Calcium 8.8 mg/dl (8.6-10.3); Creatinine Clr Calc Pharmacy 63.4 ml/min; Est GFR (African American) 79.1 ml/min; Est GFR (Non-African American) 68.3 ml/min; Potassium 3.7 mmol/L (3.5-5.1)
[2023-01-09 05:43] LABS: Prothrombin Time 20.9 Seconds (9.0-12.0)
--- NOTE | 2023-01-09 07:50 | Hospitalist Progress Note ---
Date of Service January 09, 2023 Assessment & Plan (1) Edema: Plan: 87-year-old female with history of atrial fibrillation on Coumadin anticoagulation, hypertension, CKD and severe KAYLIN on nocturnal CPAP with oxygen presenting with progressive bilateral lower extremity edema and presumed weight gain. -Mild elevation of BNP = 153 -Chest x-ray with cardiomegaly but no obvious pulmonary edema -Do not suspect active infection - no additional antibiotics at this time -TSH normal -Echocardiogram with LVEF 65-70%, mild right ventricular systolic dysfunction -Continue diuresis with Lasix 40 mg IV twice daily through today -Daily BMP to monitor renal function (2) Hypertension: Plan: -Continue Amlodipine 10mg po daily -Continue Enalapril 10mg po BID -Continue to monitor, BP normotensive (3) Severe sleep apnea: Plan: -Patient with severe KAYLIN and nocturnal hypoxemia. She is on home BiPAP therapy with supplemental O2. Her settings per last Sleep note 08/07/22 BiPAP 13/8, BiFlex 3 with 1L/min of O2 -Continue BiPAP qHS with O2 (4) CKD (chronic kidney disease), stage III: Plan: -BUN and Cr near baseline (5) Permanent atrial fibrillation: Plan: -Rate controlled with episodic bradycardia. Currently not on any rate controlling agents. Anticoagulated with Coumadin, INR=2.0 -Continue Coumadin home dosing (6) Palliative care encounter: Plan: -Today in talking with the patient and the patient's daughter, Juana has come to the hospital many times over the last month for falls, pain in her knees, other issues. She has a baseline severe tremor, ongoing fluid issues with her legs, severe KAYLIN on nightly BiPAP, atrial fibrillation, and CKD. She reported to me today that what she wants more than anything is to return home with her daughter who she lives with, and not return to the hospital again. I did discuss with her that if she does not qualify for hospice after evaluation, she still does not need to return to the hospital should she not wish to. We did complete a POLST form today which is in patient's chart. Patient would like to go home tomorrow, which patient's daughter is amenable to after another day of IV diuresis. Plan F/E/N - Diuresis as above with IV Lasix, monitor electrolytes and replete as needed (KCl 40 mg p.o. given today), Regular diet as tolerated Ppx - Continue Coumadin anticoagulation Code - DNR/DNI per discussion with patient Dispo - Admit to medical with telemetry for continued workup of edema and IV diuretics Admission and Anticipated Discharge Date Admission Date: January 08, 2023 Subjective Patient without any acute events overnight. She notes to me today that she is tired of coming to the hospital, wants to maintain her comfort at home, had a good experience with her 's hospice agency and wants to pursue evaluation by them given her ongoing medical issues. She denies any trouble breathing at this point, nor any chest pain. Review of Systems Review of Systems: All systems reviewed & are unremarkable except as noted in Subjective Physical Exam Constitutional: WD/WN, vitals as above Respiratory: normal respiratory effort, lungs clear to auscultation Cardiovascular: Heart regular rate and rhythm, no murmurs, 2+ pitting edema to bilateral extremities up to the level of the mid-mae Gastrointestinal (Abdomen): normal bowel sounds, soft, nontender, no hepatosplenomegaly Skin: Chronic venous stasis changes with hyperpigmentation over bilateral lower extremities, small fluid-filled blister on left great toe, no increased erythema or tenderness to suggest cellulitis Psychiatric: A+Ox3, euthymic affect Results & Data Results & Data Vital Signs (Past 12 Hours) Vital Signs Pulse Resp BP Pulse Ox O2 Del Method O2 Flow Rate 01/09/23 05:06 55 L 18 125/58 L 93 Nasal Cannula 1 01/09/23 03:00 61 17 126/57 L 95 Nasal Cannula 1 01/09/23 00:15 16 129/82 94 Nasal Cannula 1 01/09/23 01:01 57 L 128/61 94 Room Air 01/08/23 23:25 51 L 18 125/58 L 94 01/08/23 21:42 95 Room Air 01/08/23 21:42 113/63 95 PG Care Time/CCT Total # of Minutes Spent Total Time Spent with Patient: Total time spent is greater than 50% in coordination of care (as documented) at patient's floor/unit and/or counseling patient: Coding Level of Care Code 82802 SUB INP/OBS CARE 3/50MIN Diagnoses Edema R60.9 Hypertension I10 Hypertension type: essential hypertension Severe sleep apnea G47.30 CKD (chronic kidney disease), stage III N18.30 Permanent atrial fibrillation I48.21 Palliative care encounter Z51.5 (2) Hypertension Hypertension type: essential hypertension Qualified Code(s): I10 - Essential (primary) hypertension
[2023-01-09] MEDS ORDERED: ENALAPRIL MALEATE 10 MG TAB PO SCH (09:00)
[2023-01-09] MEDS ORDERED: amLODIPine BESYLATE 5 MG TAB PO SCH (09:00)
--- NOTE | 2023-01-09 09:36 | Electrocardiogram Report ---
Test Reason : Blood Pressure : / mmHG Vent. Rate : 055 BPM Atrial Rate : 039 BPM P-R Int : 000 ms QRS Dur : 122 ms QT Int : 426 ms P-R-T Axes : 000 -51 094 degrees QTc Int : 407 ms Atrial fibrillation with slow ventricular response Left anterior fascicular block Right bundle branch block Moderate voltage criteria for LVH, may be normal variant Abnormal ECG When compared with ECG of 23-DEC-2022 15:37, No significant change Confirmed by Ron West ([id number]) on 01/09/2023 9:36:38 AM Referred By: REFERRED SELF Confirmed By:Ron West
[2023-01-09] MEDS: FUROSEMIDE 40 MG/4 ML VIAL IV SCH ×2 (10:20→17:10)
[2023-01-09] MEDS: diphenhydrAMINE Capsule 25 MG CAP PO SCH ×2 (10:23→20:14)
--- NOTE | 2023-01-09 15:13 | XCELERA ---
[id number] \\[id number]
[2023-01-09] MEDS ORDERED: POTASSIUM CHLORIDE CRTAB 20 MEQ TABCR PO STA (15:24)
[2023-01-09] MEDS ORDERED: WARFARIN SOD 4 MG TAB PO SCH (16:00)
[2023-01-09] MEDS ORDERED: WARFARIN SOD 3 MG TAB PO SCH (16:00)
[2023-01-10] MEDS: diphenhydrAMINE Capsule 25 MG CAP PO SCH (08:28)
[2023-01-10] MEDS: FUROSEMIDE 40 MG/4 ML VIAL IV SCH (08:33)
[2023-01-10 09:15] LABS: BUN Creatinine Ratio 25.3 (10-20); Calcium 8.5 mg/dl (8.6-10.3); Creatinine Clr Calc Pharmacy 63.4 ml/min; Est GFR (African American) 79.1 ml/min; Est GFR (Non-African American) 68.3 ml/min
--- NOTE | 2023-01-10 11:32 | Discharge Summary ---
Date of Service January 10, 2023 Admission HPI Per Admitting Provider Juana Quiñones is an 87-year-old female with history of atrial fibrillation, hypertension, CKD and KAYLIN presenting with worsening edema and fluid filled blister on left great toe. Patient reports that she has had progressive bilateral lower extremity edema for the last week. She reports that the skin on her legs feels tight and that her legs feel heavy causing difficulty with ambulation at times. She woke this morning and had a fluid-filled blister on her left great toe. She does not weigh herself regularly but reports she feels that she has gained weight. Her close do not fit properly and she is unable to get her shoes on her feet. She was using compression stockings in the past but has been unable to get them on secondary to the swelling in her legs. She denies shortness of breath or orthopnea. Reports that she is urinating per usual without difficulty. Patient is uncertain of her dry weight but thinks that she should weigh between 220 and 225 pounds. Patient recently completed a course of nitrofurantoin for UTI.She reports persistent urinary incontinence. No additional complaints. Patient denies fever, chills, chest pain, cough, shortness of breath. Denies abdominal pain, nausea, vomiting, diarrhea. Denies dysuria. In the ER she is afebrile, hemodynamically stable. Adequate oxygenation on room air with no respiratory distress ER course: Lasix 40mg IV Ceftriaxone 2gm IV Admission Exam Per Admitting Provider General: patient resting comfortably, NAD, non-toxic in appearance, AA&O x 4 Skin: warm, dry, intact, chronic venous stasis changes with hyperpigmentation on bilateral LE, no active cellulitis suspected, small fluid filled blister on left great toe HEENT: NC/AT, PERRL, EOMI, anicteric sclera, conjunctiva without injection, external ear normal to inspection and nontender, nares patent, moist mucus membranes, dentition intact, no oropharyngeal lesions, neck supple, trachea midline, no LAD, no thyromegaly, no JVD Heart: +S1/S2, irregularly irregular, no m/r/g, bradycardia Lungs: equal air entry bilaterally, no rales/rhonchi/wheezes Abd: +BS, soft, NT/ND, no masses/organomegaly/ascites Ext: warm, 2+ pulses in UE/LE bilaterally, no clubbing/cyanosis, 3+ pitting edema to the thighs bilaterally Neuro: nonfocal, patient AA&O x 4, speech intact, no facial droop, moving all extremities on command with equal strength 5/5 Principal Diagnosis Lower extremity edema Discharge Exam General: Awake, conversant Heart: S1, S2/regular rate and rhythm, no murmur rubs or gallops Lungs: Clear to auscultation bilaterally. Normal effort Abdomen: Soft/nontender/nondistended. No hepatosplenomegaly Extremities: No clubbing/cyanosis. 1+ pitting bilateral edema. Edema much improved since admission Behavior: Appropriate, cooperative Discharge Data Allergies Allergy/AdvReac Type Severity Reaction Status Date / Time adhesive Allergy Intermediate RASH Verified 01/08/23 21:36 Iodinated Contrast Media Allergy Intermediate IMMEDIATE Verified 01/08/23 21:36 COLD SYMPTOMS codeine AdvReac Intermediate Hyperactive Verified 01/08/23 21:36 and agitated meperidine AdvReac Intermediate VOMITTING Verified 01/08/23 21:36 Consultations 01/08/23 20:43 ED Decision to Admit Stat Hospital Course (1) Edema: 87-year-old female with history of atrial fibrillation on Coumadin anticoagulation, hypertension, CKD and severe KAYLIN on nocturnal CPAP with oxygen presenting with progressive bilateral lower extremity edema and presumed weight gain. -Mild elevation of BNP = 153 -Chest x-ray with cardiomegaly but no obvious pulmonary edema -Do not suspect active infection - no additional antibiotics at this time -TSH normal -Echocardiogram with LVEF 65-70%, mild right ventricular systolic dysfunction -Patient responded to IV diuretics We will discharge on oral Lasix 40 mg p.o. Increase the dose from once daily to twice daily Renal function tolerated diuretics well (2) Hypertension: -Continue Amlodipine 10mg po daily -Continue Enalapril 10mg po BID (3) Severe sleep apnea: -Patient with severe KAYLIN and nocturnal hypoxemia. She is on home BiPAP therapy with supplemental O2. Her settings per last Sleep note 08/07/22 BiPAP 13/8, BiFlex 3 with 1L/min of O2 -Continue BiPAP qHS with O2 (4) CKD (chronic kidney disease), stage III: -BUN and Cr near baseline (5) Permanent atrial fibrillation: -Rate controlled with episodic bradycardia. Currently not on any rate controlling agents. Anticoagulated with Coumadin, INR=2.0 -Continue Coumadin home dosing (6) Palliative care encounter: -Today in talking with the patient and the patient's daughter, Juana has come to the hospital many times over the last month for falls, pain in her knees, other issues. She has a baseline severe tremor, ongoing fluid issues with her legs, severe KAYLIN on nightly BiPAP, atrial fibrillation, and CKD. She reported to me today that what she wants more than anything is to return home with her daughter who she lives with, and not return to the hospital again. I did discuss with her that if she does not qualify for hospice after evaluation, she still does not need to return to the hospital should she not wish to. Patient is being discharged to home with hospice today Plan Ppx - Continue Coumadin anticoagulation Code - DNR/DNI per discussion with patient Dispo -discharge to home with hospice Total Time Total Time Spent Total Time Spent (In Minutes): 35 Discharge Plan Discharge Items Patient Disposition: Home - Home Health Services Reason For Visit: LE EDEMA Discharge Diagnosis: Lower extremity edema Activity: Resume your previous activity Non-emergency contact: Primary Care Provider Call non-emergency contact if: you have any medication questions and your symptoms worsen Follow-up/Referrals: Ian Galindo MD [Primary Care Provider] - Diet: Heart Healthy and Low Sodium (2gm) Addtl Attending Provider Instructions: Advised to note that you are being discharged to home with hospice Pending Studies at Discharge: No Stand-Alone Forms: My [facility] Medications and DC Order Prescriptions: New furosemide 40 mg tablet 40 mg PO BID Qty: 30 0RF Continued cholecalciferol (vitamin D3) 1,000 unit capsule 1,000 units PO QAM docusate sodium 100 mg capsule 100 mg PO QAM tnqfpgmq-emy-HF-lycopen-lutein [Centrum Silver] 0.4-300-250 mg-mcg-mcg tablet 1 tab PO QAM warfarin [Jantoven] 5 mg tablet See Rx Instructions PO UD Dose Instruction: TAKE DIRECTED BY [facility] Rx Instructions: 6mg q Tu/Th, 7mg x 5 days per [facility] orally use as directed; enalapril maleate 10 mg tablet 10 mg PO BID Qty: 180 3RF warfarin 1 mg tablet See Rx Instructions PO UD Qty: 150 1RF Rx Instructions: 6mg q Tu/Th, 7mg x 5 days per [facility] PO use as directed; amlodipine [Norvasc] 10 mg tablet 10 mg PO QAM Qty: 90 3RF acetaminophen [Tylenol Arthritis Pain] 650 mg tablet extended release 650 mg PO Q12H calcium carbonate 600 mg calcium (1,500 mg) Tablet 600 mg PO QAM Discontinued furosemide [Lasix] 40 mg tablet 40 mg PO DAILY Rx Instructions: TAKE 1 TABLET BY MOUTH ONCE DAILY Discharge Orders: Discharge Order (Routine); Ordered 01/10/23 Ordered By: Johnna Cornelius Admission Data Admit Date/Time: 01/08/23 21:29 Attending Provider: Johnna Cornelius Admit Provider: Carolin Villegas Primary Care Provider: Ian Galindo Other Providers: Carolin Villegas ; [facility] Other Interventions: Discharge Summary Assessment (RN) Last Done: 01/10/23 11:54 Coding Level of Care Code 40433 INP/OBS DISCH >30 MIN Diagnoses Edema R60.9 Hypertension I10 Hypertension type: essential hypertension Severe sleep apnea G47.30 CKD (chronic kidney disease), stage III N18.30 Permanent atrial fibrillation I48.21 Palliative care encounter Z51.5
[2023-01-10] MEDS ORDERED: WARFARIN SOD 6 MG TAB PO SCH (16:00)
--- NOTE | 2023-01-14 08:32 | Emergency Department Note ---
Impression & Plan Bilateral edema of lower extremity, Dyspnea, Elevated brain natriuretic peptide (BNP) level ED Provider Note NAME: MARIA ESTHER MELENDEZ AGE: 87 SEX: F : 1935 ARRIVES VIA: Ambulance INFORMANT: Patient, ED PROVIDER(S): Cody Ray MD CHIEF COMPLAINT: Leg swelling, shortness of breath MEDICAL DECISION MAKING: Patient presents due to concern for swelling of the bilateral lower extremities with 1 associated blister noted to the left toe. IV was established blood work was obtained. The patient was found to be in likely volume overload the patient was ordered Lasix. I did speak the on-call hospitalist service Dr. Villegas patient was admitted to the medicine service. Patient is a normal white count H&H and platelet count. Kidney function is unremarkable with normal electrolytes. BSG at 132. Patient's BNP is 153. Troponin is not elevated. Patient was ordered Lasix IV. Prior /Outside records reviewed: None Differential diagnosis: Reactive airway disease, pneumonia, pneumothorax, COPD, CHF, infections, cardiac ischemia, pulmonary embolism, musculoskeletal, gastrointestinal, as well as other pathologies. Diagnostics, as interpreted by me: ECG: A-fib, ventricular rate of 55, normal QRS, left axis deviation T wave version V2. Cardiac monitoring: An order was placed for continuous cardiac monitoring. The monitor shows a rate of 67 with irregular irregular rhythm. Patient was placed on pulse oximetry Medical decision rules: None Imaging studies: See below My preliminary interpretation of the patient's chest x-ray does show cardiomegaly. No obvious pneumothorax. HPI: Patient has presented a concern for worsening edema and fluid Filipowicz her left great toe. The patient states that she has had progressive bilateral lower extremity swelling over the last 6 or 7 days. The patient has had some increasing difficulty with ambulation. Patient states that she has had good urination and has been taking her medications as prescribed. No increased fluid intake or salt. Patient has no chest pains. PAST MEDICAL HISTORY: See Below PAST SURGICAL HISTORY: See Below SOCIAL HISTORY: See Below HOME MEDICATIONS: See Below ALLERGIES: See Below VITALS: See Below PHYSICAL EXAMINATION: GENERAL: NAD, wearing a mask, non-toxic. EYE EXAM: Normal conjunctiva. PERRL, no anisocoria and EOM's grossly intact w/o pain. NECK: Supple, no nuchal rigidity, no adenopathy, non-tender. No signs of meningismus. FROM of the neck with good chin to chest and neck extension. No stridor. LUNGS: Bibasilar crackles noted. Normal chest wall mechanics. HEART: Irregularly irregular, no MRG. ABDOMEN: Abdomen soft, non-tender, no masses, no rebound or guarding. BACK: No CVA TTP. SKIN: No rashes and no bruising. UPPER EXTREMITIES: Upper extremities are grossly normal. LOWER EXTREMITIES: Grossly normal, 3+ bilateral symmetric lower extremity edema. Blister noted to left great toe approximately 3 x 2 cm, clear fluid-filled NEURO EXAM: A&O x3, cranial nerves II-XII grossly intact, normal speech, moves all 4 extremities. Past Med/Surg History Medical History Atrial fibrillation on warfarin. 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 Cystocele History of colon polyps HTN (hypertension) Hx of endometriosis Hx of migraines Lymphedema Nocturnal hypoxemia On home O2 1 LPM qHS Sleep apnea CPAP Surgical History H/O oral surgery H/O vascular surgery RT LEG (VEIN ABLATION) H/O: hysterectomy History of appendectomy History of cataract surgery RT/LEFT History of colonoscopy History of dilatation and curettage S/P cholecystectomy Family History Mother Cervical cancer Diabetes Hypertension Gallbladder disease Sister Colon cancer Diabetes Kidney disease Gallbladder disease Father Diabetes Lung disease Brother Colon cancer Alcohol abuse Lung disease Uncle Myocardial infarction Other Family history non-contributory Family history of colon cancer No family history of adverse response to anesthesia Social History Smoking Status: Never smoker Second Hand Exposure: No; Hx Alcohol Use: No Hx Substance Use: No Preferred Language: Montserratian Communication Ability: Effective Visual Impairment: Limited Hearing Ability: Normal Curing Supervisor Required: No Beliefs That Will Affect Care: None marital status: / Current Living Situation: Family Current Living Situation Comment: lives with daughter and CHANDA current occupational status: retired How many Children do You have: 1 Feels Safe at Home: Yes Childhood Exposure to Second-Hand Smoke: Yes caffeine: No Dental Care, Regularly: No Physical Activity Frequency: Does not Exercise Seatbelt Use: always Sunscreen Use: No Assistive Devices: Walker Allergies Allergies Allergy/AdvReac Type Severity Reaction Status Date / Time adhesive Allergy Intermediate RASH Verified 01/08/23 21:36 Iodinated Contrast Media Allergy Intermediate IMMEDIATE Verified 01/08/23 21:36 COLD SYMPTOMS codeine AdvReac Intermediate Hyperactive Verified 01/08/23 21:36 and agitated meperidine AdvReac Intermediate VOMITTING Verified 01/08/23 21:36 Home Meds Home Medications Medication Instructions Recorded Confirmed cholecalciferol (vitamin D3) 25 1,000 units PO QAM 07/28/18 01/08/23 mcg (1,000 unit) capsule docusate sodium 100 mg capsule 100 mg PO QAM 07/28/18 01/08/23 tcetcegg-rgc-rrzzl acid 0.4 1 tab PO QAM 07/28/18 01/08/23 mg-lycopene 300 mcg-lutein 250 mcg tablet (Centrum Silver) acetaminophen 650 mg 650 mg PO Q12H 05/12/19 01/08/23 tablet,extended release (Tylenol Arthritis Pain) warfarin 5 mg tablet (Jantoven) See Rx Instructions PO UD 09/19/22 01/08/23 calcium carbonate 600 mg calcium 600 mg PO QAM 12/26/22 01/08/23 (1,500 mg) tablet Previous Rx's Medication Instructions Recorded enalapril maleate 10 mg tablet 10 mg PO BID #180 tabs 09/24/22 warfarin 1 mg tablet See Rx Instructions PO UD #150 tabs 11/05/22 amlodipine 10 mg tablet (Norvasc) 10 mg PO QAM #90 tabs 12/03/22 furosemide 40 mg tablet 40 mg PO BID #30 tabs 01/10/23 Results & Data (ED) Home Medications Current Medication List: was personally reviewed by me Laboratory Data Attestation: I reviewed the patient's lab results. 01/09/23 04:46 01/10/23 08:29 Lab Results 01/08/23 01/08/23 01/08/23 Range/Units 18:35 18:35 18:35 WBC 6.31 (4.8-10.8) K/ul RBC 4.77 (4.20-5.40) M/uL Hgb 15.2 (12.0-16.0) g/dl Hct 45.8 (37.0-47.0) % MCV 96.0 (80.0-100.0) fL MCH 31.9 (25.0-34.0) pg MCHC 33.2 (32.0-36.0) g/dL RDW Std Deviation 49.1 H (36.4-46.3) fL RDW Coeff of Lizabeth 13.8 (11.5-14.5) % Plt Count 191 (130-400) K/uL MPV 10.4 (9.4-12.4) fL Immature Gran % (Auto) 0.2 % Neut % (Auto) 47.3 % Lymph % (Auto) 41.7 % Trigg % (Auto) 9.2 % Eos % (Auto) 1.0 % Baso % (Auto) 0.6 % Neut # (Auto) 2.99 (1.40-6.50) K/uL Lymph # (Auto) 2.63 (1.2-3.4) K/uL Trigg # (Auto) 0.58 (0.11-0.59) K/uL Eos # (Auto) 0.06 (0-0.50) K/uL Baso # (Auto) 0.04 (0-0.2) K/uL Immature Gran # (Auto) 0.01 (0.01-0.20) K/uL PT INR Sodium TNP Potassium TNP Chloride 101 (98-107) mmol/L Carbon Dioxide 32 (21-32) mmol/L Anion Gap TNP BUN 26 H (6-23) mg/dl Creatinine 0.92 (0.6-1.2) mg/dl Est Cr Clr Drug Dosing Not Reportable Est GFR ( Amer) 65.8 ml/min Est GFR (Non-Af Amer) 56.8 ml/min BUN/Creatinine Ratio 28.3 H (10-20) Glucose 95 (70-99(Fasting)) mg/dl Calcium 9.3 (8.6-10.3) mg/dl Total Bilirubin 1.0 (0.2-1.0) mg/dl AST TNP ALT 23 (7-52) U/L Alkaline Phosphatase TNP Troponin I High Sens 11.7 (0-14) pg/ml B-Natriuretic Peptide 153 H (0-100) pg/ml Total Protein 7.4 (6.0-8.3) gm/dl Albumin TNP Globulin TNP Albumin/Globulin Ratio TNP Lipase 17 (11-82) U/L SARS-CoV-2, RNA, NAAT (NEGATIVE) 01/08/23 01/08/23 01/08/23 Range/Units 18:35 20:17 20:17 WBC (4.8-10.8) K/ul RBC (4.20-5.40) M/uL Hgb (12.0-16.0) g/dl Hct (37.0-47.0) % MCV (80.0-100.0) fL MCH (25.0-34.0) pg MCHC (32.0-36.0) g/dL RDW Std Deviation (36.4-46.3) fL RDW Coeff of Lizabeth (11.5-14.5) % Plt Count (130-400) K/uL MPV (9.4-12.4) fL Immature Gran % (Auto) % Neut % (Auto) % Lymph % (Auto) % Trigg % (Auto) % Eos % (Auto) % Baso % (Auto) % Neut # (Auto) (1.40-6.50) K/uL Lymph # (Auto) (1.2-3.4) K/uL Trigg # (Auto) (0.11-0.59) K/uL Eos # (Auto) (0-0.50) K/uL Baso # (Auto) (0-0.2) K/uL Immature Gran # (Auto) (0.01-0.20) K/uL PT Cancelled 25.6 H INR Cancelled 2.5 H Sodium 138 Potassium 3.8 Chloride (98-107) mmol/L Carbon Dioxide (21-32) mmol/L Anion Gap BUN (6-23) mg/dl Creatinine (0.6-1.2) mg/dl Est Cr Clr Drug Dosing Est GFR ( Amer) ml/min Est GFR (Non-Af Amer) ml/min BUN/Creatinine Ratio (10-20) Glucose (70-99(Fasting)) mg/dl Calcium (8.6-10.3) mg/dl Total Bilirubin (0.2-1.0) mg/dl AST 30 ALT (7-52) U/L Alkaline Phosphatase 96 Troponin I High Sens (0-14) pg/ml B-Natriuretic Peptide (0-100) pg/ml Total Protein (6.0-8.3) gm/dl Albumin 4.1 Globulin Albumin/Globulin Ratio Lipase (11-82) U/L SARS-CoV-2, RNA, NAAT (NEGATIVE) 01/08/23 Range/Units 21:14 WBC (4.8-10.8) K/ul RBC (4.20-5.40) M/uL Hgb (12.0-16.0) g/dl Hct (37.0-47.0) % MCV (80.0-100.0) fL MCH (25.0-34.0) pg MCHC (32.0-36.0) g/dL RDW Std Deviation (36.4-46.3) fL RDW Coeff of Lizabeth (11.5-14.5) % Plt Count (130-400) K/uL MPV (9.4-12.4) fL Immature Gran % (Auto) % Neut % (Auto) % Lymph % (Auto) % Trigg % (Auto) % Eos % (Auto) % Baso % (Auto) % Neut # (Auto) (1.40-6.50) K/uL Lymph # (Auto) (1.2-3.4) K/uL Trigg # (Auto) (0.11-0.59) K/uL Eos # (Auto) (0-0.50) K/uL Baso # (Auto) (0-0.2) K/uL Immature Gran # (Auto) (0.01-0.20) K/uL PT INR Sodium Potassium Chloride (98-107) mmol/L Carbon Dioxide (21-32) mmol/L Anion Gap BUN (6-23) mg/dl Creatinine (0.6-1.2) mg/dl Est Cr Clr Drug Dosing Est GFR ( Amer) ml/min Est GFR (Non-Af Amer) ml/min BUN/Creatinine Ratio (10-20) Glucose (70-99(Fasting)) mg/dl Calcium (8.6-10.3) mg/dl Total Bilirubin (0.2-1.0) mg/dl AST ALT (7-52) U/L Alkaline Phosphatase Troponin I High Sens (0-14) pg/ml B-Natriuretic Peptide (0-100) pg/ml Total Protein (6.0-8.3) gm/dl Albumin Globulin Albumin/Globulin Ratio Lipase (11-82) U/L SARS-CoV-2, RNA, NAAT NEGATIVE (NEGATIVE) Administered Medications Discontinued Medications Acetaminophen (Acetaminophen 325 Mg Tab) 650 mg PO Q4H PRN PRN Reason: pain/fever Stop: 02/08/23 00:14 Last Admin: 01/10/23 07:25 Dose: 650 mg Documented By: DANIELITO Amlodipine Besylate (Amlodipine Besylate 5 Mg Tab) 10 mg PO QAM DANIKA Stop: 02/08/23 08:59 Last Admin: 01/09/23 10:24 Dose: Not Given Documented By: VENESSA Diphenhydramine HCl (Diphenhydramine Capsule 25 Mg Cap) 25 mg PO BID DANIKA Stop: 02/08/23 08:59 Last Admin: 01/10/23 08:28 Dose: 25 mg Documented By: Admin: 01/09/23 20:14 Dose: 25 mg Documented By: Admin: 01/09/23 10:23 Dose: 25 mg Documented By: VENESSA Enalapril Maleate (Enalapril Maleate 10 Mg Tab) 10 mg PO BID DANIKA Stop: 02/08/23 08:59 Last Admin: 01/09/23 10:25 Dose: Not Given Documented By: VENESSA Furosemide (Furosemide 40 Mg/4 Ml Vial) 40 mg IV ONE ONE Stop: 01/08/23 20:45 Last Admin: 01/08/23 21:15 Dose: 40 mg Documented By: ADIN Furosemide (Furosemide 40 Mg/4 Ml Vial) 40 mg IV [id number] DANIKA Stop: 02/08/23 08:59 Last Admin: 01/10/23 08:33 Dose: 40 mg Documented By: Admin: 01/09/23 17:10 Dose: 40 mg Documented By: Admin: 01/09/23 10:20 Dose: 40 mg Documented By: VENESSA Ceftriaxone Sodium (Rocephin) 2,000 mg in 70 mls @ 140 mls/hr IV NOW STA Stop: 01/08/23 21:12 Last Infusion: 01/09/23 00:42 Dose: 0 mls/hr Documented By: Admin: 01/08/23 21:15 Dose: 140 mls/hr Documented By: ADIN Potassium Chloride (Potassium Chloride Crtab 20 Meq Tabcr) 40 meq PO NOW STA Stop: 01/09/23 15:25 Last Admin: 01/09/23 17:14 Dose: 40 meq Documented By: DANIELITO Warfarin Sodium (Warfarin Sod 3 Mg Tab) 3 mg PO [email or web address] DANIKA Stop: 02/08/23 15:59 Last Admin: 01/09/23 17:17 Dose: 3 mg Documented By: DANIELITO Warfarin Sodium (Warfarin Sod 4 Mg Tab) 4 mg PO [email or web address] [email or web address] Stop: 02/08/23 15:59 Last Admin: 01/09/23 17:18 Dose: 4 mg Documented By: DANIELITO Warfarin Sodium (Warfarin Sod 6 Mg Tab) 6 mg PO ONE ONE Stop: 01/09/23 00:45 Last Admin: 01/09/23 01:29 Dose: 6 mg Documented By: ADIN Imaging Data Radiologist's Impression: Chest X-Ray 01/08/23 18:23 SINGLE VIEW CHEST CLINICAL HISTORY: Atypical chest pain FINDINGS: An AP, portable, upright chest radiograph is compared to study dated 12/23/2022. The heart is enlarged noting atherosclerotic calcification of the thoracic aorta. The pulmonary vasculature is noncongested. Chronic interstitial thickening similar to previous. There is bibasilar scarring/atelectasis. The lungs and pleural spaces are otherwise clear. No pneumothorax is seen. The skeletal structures are osteopenic. The bony thorax is grossly intact. IMPRESSION: Cardiomegaly with no active disease in the chest. ACT 112: Negative or not required by law. Electronically signed by: Jose Welsh M.D. 01/08/2023 10:35 PM Discharge Plan Visit Data Chief Complaint: Edema To Extremity Stated Complaint: BLISTER ON TOE ED Provider: Cody Ray Discharge Problem: Bilateral edema of lower extremity, Dyspnea, Elevated brain natriuretic peptide (BNP) level Patient Disposition: Admitted As Inpatient Discharge Instructions Interventions: ED Discharge Assessment Last Done: 01/09/23 00:14
== END 2023-01-10 13:30 | disposition hospice, home (50) | DRG 948 ==
LOC: ED 18:14 → EDINP 21:29 → SUATTDRO 21:29 → 2N 01-09 00:14